=== PATIENT | female | born 1990 | race Two or more races ===

== ENCOUNTER 2022-12-29 23:11 | Emergency (ER) | payer OTHER, SELFPAY ==
--- NOTE | ~2022-12-29 | US_ITS ---
EXAMINATION: US OB <= 14 weeks fetus DATE: 12/30/2022 02:42 INDICATION: Pelvic pain and bleeding during first trimester TECHNIQUE: Real-time pelvic transabdominal ultrasound was performed. COMPARISON: None. FINDINGS: The uterus measures 12.5 x 6.3 x 8.4 cm. There is an intrauterine gestational sac. A yolk s ac is identified. heart motion is identified measuring 174 beats per minute (bpm) by M-mode Dop pler. The crown rump length measures 3.4 cm, which correlates with an estimated gestational age of 10 weeks and 2 day(s) (+/-) 6 day(s). The ovaries are not visualized however no adnexal abnormality is seen. There is no free fluid in the pelvis. IMPRESSION: 1. Live intrauterine with an estimated gestational age of 10 weeks and 2 day(s) (+/-) 6 day (s) and an estimated delivery date of 07/26/2023. Reviewed, dictated and finalized at location [facility]. LE CLEANER IMPRESSION: 1. Live intrauterine with an estimated gestational age of 10 weeks an d 2 day(s) (+/-) 6 day(s) and an estimated delivery date of 07/26/2023.
[2022-12-29 23:15] VITALS: BP 105/63; PULSE 104; RESP 20; TEMP 37; O2SAT 98
[2022-12-29 23:54] VITALS: BP 94/58; PULSE 82
[2022-12-29 23:55] VITALS: BP 90/71; BP 96/66; PULSE 88; PULSE 92
[2022-12-30 00:14] LABS: Basophils Percent Auto 0.4 % (0.2-1.2); Eosinophils Absolute Auto 0.1 K/mm3 (0-0.3); Eosinophils Percent Auto 1.6 % (0-4.4); Hematocrit 36.3 % (37.0-47.0); Hemoglobin 12.3 g/dL (12.0-15.0); Immature Granulocyte Absolute 0.05 K/mm3 (0.00-0.031); Immature Granulocyte Percent A 0.6 % (0-0.5); Lymphocytes Percent Auto 24.4 % (18.3-44.2); Mean Corpuscular HGB Conc 33.9 g/dl (32-36); Mean Corpuscular Hemoglobin 29.6 pg (26-34); Mean Corpuscular Volume 87.3 fl (80-100); Mean Platelet Volume 11.3 fl (7.4-10.4); Monocytes Absolute Auto 0.6 K/mm3 (0.1-0.6); Monocytes Percent Auto 6.4 % (2.6-8.5); Neutrophils Percent Auto 66.6 % (45.5-73.1); Platelet Count Result 229 k/mm3 (150-375); Red Blood Count 4.16 M/mm3 (4.2-5.4); Red Cell Distribution Width 12.3 % (11.5-14.5)
[2022-12-30] MEDS: SODIUM CHLORIDE 0.9% IV 1,000 ML 999 ML IV CONT (00:24)
--- NOTE | 2022-12-30 00:57 | ED.FEMALEGU ---
HPI - Female Genitourinary General Chief complaint: Vaginal Bleeding <Angela Ordonez PA-C - Last Filed: 12/30/22 16:59> Stated complaint: vaginal bleeding <Angela Ordonez PA-C - Last Filed: 12/30/22 16:59> Time Seen by Provider: 12/29/22 23:48 <Angela Ordonez PA-C - Last Filed: 12/30/22 16:59> Source: patient and family <Angela Ordonez PA-C - Last Filed: 12/30/22 16:59> Mode of arrival: ambulatory <Angela Ordonez PA-C - Last Filed: 12/30/22 16:59> Limitations: language barrier (stratus wind farm engineer used) <Angela Ordonez PA-C - Last Filed: 12/30/22 16:59> History of Present Illness HPI Narrative: This is a 32 year old female that presents to the ER for bleeding in . Reports she is about 9 weeks by LMP. Reports she started to have some spotting tonight which prompted her to be seen. Reports some pelvic cramping. Denies fever, vomiting, or dysuria. <Angela Ordonez PA-C - Last Filed: 12/30/22 16:59> Related Data Allergies/Adverse reactions: Allergies Allergy/AdvReac Type Severity Reaction Status Date / Time No Known Allergies Allergy Verified 12/29/22 23:35 <Angela Ordonez PA-C - Last Filed: 12/30/22 16:59> Review of Systems Review of Systems: CONSTITUTIONAL: Denies fever GASTROINTESTINAL: Reports pelvic pain. Denies nausea, vomiting GENITOURINARY: Denies dysuria <Angela Ordonez PA-C - Last Filed: 12/30/22 16:59> All systems reviewed & are unremarkable except as noted in HPI and below <Angela Ordonez PA-C - Last Filed: 12/30/22 16:59> [facility] Past Medical History Medical History: Medical History (Updated 12/30/22 @ 02:48 by Angela Ordonez PA-C) No active medical problems <Angela Ordonez PA-C - Last Filed: 12/30/22 16:59> Social History Social History: Social History (Updated 12/30/22 @ 00:59 by Angela Ordonez PA-C) Smoking status: Never smoker <Angela Ordonez PA-C - Last Filed: 12/30/22 16:59> Exam Narrative: GENERAL: Well-appearing, well-nourished, and in no acute distress. HEAD: Normocephalic, atraumatic. EYES: EOMI. CHEST: Clear to auscultation. No respiratory distress. No wheezes rales or rhonchi HEART: Regular rate and rhythm. No murmur heard. Normal peripheral pulses. ABDOMEN: Soft, nontender, nondistended, normal active bowel sounds. EXTREMITIES: Normal range of motion. No edema. SKIN: Warm, dry, no rash. NEURO: No focal deficits. Alert and oriented x3. PSYCH: Normal mood and affect PELVIC: Small amount of brown discharge, cervix closed <Angela Ordonez PA-C - Last Filed: 12/30/22 16:59> Course Course Emergency Course: Patient updated on workup thus far. Resting comfortably <Angela Ordonez PA-C - Last Filed: 12/30/22 16:59> GUTTER INSTALLER/PA Physician Supervision Patient is signed out to me at the end of ML's shift. We discussed patient's presentation and that she is pending the US to be performed. US is performed. Although ovaries are not visualized, ectopic has been ruled out as there is a viable IUP. I did present to the bedside and evaluate the patient personally. She is reassured by the ultrasound discussed with her. She otherwise states she is feeling better and stable for discharge. I did participate in the assessment, plan, and management of the patient. <Elvira Workman MD - Last Filed: 12/30/22 03:53> Vital Signs Vital signs: Vital Signs Temperature 98.6 F 12/29/22 23:15 Pulse Rate 104 H 12/29/22 23:15 Respiratory Rate 20 12/29/22 23:15 Blood Pressure 105/63 12/29/22 23:15 Pulse Oximetry 98 12/29/22 23:15 Oxygen Delivery Room Air 12/29/22 23:15 Temperature 98.6 F 12/29/22 23:15 Pulse Rate 85 12/30/22 03:06 Respiratory Rate 14 12/30/22 03:06 Blood Pressure 102/70 12/30/22 03:06 Pulse Oximetry 98 12/30/22 03:06 Oxygen Delivery Room Air 12/29/22 23:15 <Angela Ordonez PA-C - Last Filed: 12/30/22 16
[2022-12-30 02:57] VITALS: BP 98/71; PULSE 85; RESP 14; O2SAT 98
[2022-12-30 03:06] VITALS: BP 102/70; PULSE 85; RESP 14; O2SAT 98
== END 2022-12-30 03:57 | disposition home or self-care (01) ==
PROVIDERS: Physician Assistant; Emergency Provider Student in an Organized Health Care Education/Training Program
DX: O20.0 Threatened abortion (principal); Z3A.10 10 weeks gestation of pregnancy
CPT/HCPCS: 36415; 76801; 84702; 85025; 85461; 86850; 86900; 86901; 96360; 99284; J7030

== ENCOUNTER 2023-04-14 12:26 | Outpatient (CLI) | payer MEDICAID, SELFPAY ==
--- NOTE | ~2023-04-14 | US_ITS ---
EXAMINATION: US OB /maternal detail DATE: 04/14/2023 INDICATION: anatomic survey. TECHNIQUE: Real-time ultrasound of the pelvis was performed. COMPARISON: Ultrasound 12/30/2022 FINDINGS: There is a single living fetus in breech presentation. The placenta is posterior. heart rate i s 153 beats per minute (bpm). The amniotic fluid volume is subjectively normal. The following biometric data were obtained: Biparietal diameter (BPD): 6.3 cm; head circumference (HC): 23.7 cm; abdominal circumference (AC): 21 .3 cm; femur length (FL): 4.4 cm. These measurements are discordant with low FL/BPD ratio. Estimated weight is 797 g +/- 120 g, which correlates with the 41st percentile when 07/26/23 is used as estimated date of delivery. As single measurements, these parameters are each equal to the following estimated gestational ages: BPD: 25 weeks 3 days. HC: 25 weeks 5 days. AC: 25 weeks 6 days. FL: 24 weeks 4 days. estimated gestational age based solely on measurements from this exam is 25 weeks 3 days +/- 1 weeks 5 days. The cerebral ventricles, cerebellum, cisterna magna, and visualized portions of the spine are normal. The heart is normal. The diaphragm, stomach, kidneys, and bladder are normal. There are two umbilica l arteries to yield a 3-vessel cord. The cord insertion is normal. The cervical length is 5.9 cm on transvaginal images, which is normal. IMPRESSION: 1. Single living fetus in breech presentation. 2. Estimated weight is 797 g +/- 120 g, which correlates with the 41st percentile when 07/26/23 is used as estimated date of delivery. This date was set by ultrasound on 12/30/2022. 3. Discordant biometrics with low FL/BPD. 4. Normal anatomic survey. Reviewed, dictated and finalized at location [facility]. IDE EVENT SALES SPECIALIST IMPRESSION: 1. Single living fetus in breech presentation. 2. Estimated weight is 797 g +/- 120 g, which correlates with the 41st p ercentile when 07/26/23 is used as estimated date of delivery. This date was set by ultrasound on 12/30/2022. 3. Discordant biometrics with low FL/BPD. 4. Normal anatomic survey.
== END 2023-04-14 12:27 | disposition home or self-care (01) ==
LOC: ANHIMG 12:27
PROVIDERS: PCP Obstetrics & Gynecology Gynecology; Visit Provider Advanced Practice Midwife
DX: Z36.9 Encounter for antenatal screening, unspecified (principal)
CPT/HCPCS: 76805; 76830

== ENCOUNTER 2023-07-18 06:08 | Inpatient (IN) | payer OTHER, SELFPAY ==
[2023-07-18] VITALS (161 sets, daily range): BP systolic 57–127; BP diastolic 25–84; PULSE 66–115; RESP 16; TEMP 36.4–37.1; O2SAT 96–100; BMI 28.5
--- NOTE | 2023-07-18 06:08 | LDADM ---
This patient, Paolo Gonsales, was admitted to Labor/Delivery/Recovery 104 on 07/18/23 at 06:08. Plans for labor, pain management and were discussed with patient. Patient/family oriented to hospital policies and general routines including ID bracelet, bed and alarms, visiting hours, pain management, procedures, bathroom and other care routines, personal items, smoking policy, room service/diet and guest tray routines, security routines, and visiting hours. Patient/Family are encouraged to report perceived risks to care and to ask questions if they do not understand what they are told or what they should do. See OBIX for further documentation.
[2023-07-18 06:53] LABS: Basophils Percent Auto 0.4 % (0.2-1.2); Eosinophils Absolute Auto 0.1 K/mm3 (0-0.3); Hematocrit 38.8 % (37.0-47.0); Hemoglobin 13.3 g/dL (12.0-15.0); Immature Granulocyte Absolute 0.16 K/mm3 (0.00-0.031); Immature Granulocyte Percent A 1.4 % (0-0.5); Lymphocytes Absolute Auto 1.65 K/mm3 (0.9-3.2); Lymphocytes Percent Auto 14.6 % (18.3-44.2); Mean Corpuscular HGB Conc 34.3 g/dl (32-36); Mean Corpuscular Hemoglobin 30.9 pg (26-34); Mean Corpuscular Volume 90.2 fl (80-100); Mean Platelet Volume 10.9 fl (7.4-10.4); Monocytes Absolute Auto 0.7 K/mm3 (0.1-0.6); Monocytes Percent Auto 6.5 % (2.6-8.5); Neutrophils Absolute Auto 8.6 K/mm3 (1.3-6.7); Neutrophils Percent Auto 76.1 % (45.5-73.1); Platelet Count Result 170 k/mm3 (150-375); Red Cell Distribution Width 13.1 % (11.5-14.5); White Blood Count 11.3 K/mm3 (4.5-10.0)
[2023-07-18] MEDS: LACTATED RINGERS 1,000 ML 125 ML IV CONT ×3 (06:59→13:05)
[2023-07-18] MEDS: OXYTOCIN 30 UNITS/NS 500 ML 30 UNITS/500 ML BAG IV CONT (06:59)
--- NOTE | 2023-07-18 07:31 | WPDOBADMIT ---
Obstetrics - Admit Note Admission Note: record reviewed. No pertinent additions to the history and/or any subsequent changes in the physical findings that are not consistent with the expected course of the were found. Additions to the history and/or subsequent changes in the physical findings follow. None.
--- NOTE | 2023-07-18 07:32 | PM.OBPNLAB ---
Pain Control Date/time seen: 07/18/23 07:30 Pain control: tolerating well Comments: feeling occasional cramping Pelvic Exam Dilation (cm): 1 Effacement (%): 50 station: -3 Amniotic membrane status: Intact Comments: posterior cervix, soft. Contractions Monitor mode: External Contraction pattern: Irregular Contraction intensity: Mild Status status: Category l Assessment and Plan Assessment: induction ongoing Comments: Defer discussing ROM attempt at this time due to very posterior cervix and 1cm. Continue pitocin as needed to achieve adequate contraction pattern. Consider ROM attempt later if indicated.
[2023-07-18 09:35] LABS: HIV 1/2 Ab P24 Ag Result Negative (Negative)
--- NOTE | 2023-07-18 12:08 | WPDANESEPP ---
Anes - Eval Pre Procedure Procedure: Labor Epidural Date/Time: 07/18/23 12:08 Surgeon: Marsha Preop Diagnosis: Labor pain Pre Op Diagnosis: Induction of Labor Patient Data Age: 32 Gender: F Height: 1.6 m Weight: 73 kg Last Vital Signs Temp 37.1 C 07/18/23 10:28 Pulse 91 07/18/23 12:00 BP 109/69 07/18/23 12:00 O2 Del Method Room Air 07/18/23 06:33 Allergies Allergy/AdvReac Type Severity Reaction Status Date / Time No Known Allergies Allergy Verified 12/29/22 23:35 Home Medications Medication Instructions Recorded Confirmed Type vit no.95-ferrous 1 tablet PO DAILY 07/18/23 07/18/23 History fumarate 28 mg-folic acid 800 mcg tablet () Laboratory Tests 07/18/23 06:38 WBC 11.3 H K/mm3 (4.5-10.0) RBC 4.30 M/mm3 (4.2-5.4) Hgb 13.3 g/dL (12.0-15.0) Hct 38.8 % (37.0-47.0) MCV 90.2 fl (80-100) MCH 30.9 pg (26-34) MCHC 34.3 g/dl (32-36) RDW 13.1 % (11.5-14.5) Plt Count 170 k/mm3 (150-375) MPV 10.9 H fl (7.4-10.4) Immature Gran % (Auto) 1.4 H % (0-0.5) Neut % (Auto) 76.1 H % (45.5-73.1) Lymph % (Auto) 14.6 L % (18.3-44.2) [place] % (Auto) 6.5 % (2.6-8.5) Eos % (Auto) 1.0 % (0-4.4) Baso % (Auto) 0.4 % (0.2-1.2) Lymph # (Auto) 1.65 K/mm3 (0.9-3.2) [place] # (Auto) 0.7 H K/mm3 (0.1-0.6) Eos # (Auto) 0.1 K/mm3 (0-0.3) Baso # (Auto) 0.0 K/mm3 (0.0-0.1) Abs Immat Gran (auto) 0.16 H K/mm3 (0.00-0.031) Absolute Neuts (auto) 8.6 H K/mm3 (1.3-6.7) Absolute Nucleated RBC 0.000 K/mm3 (0.0-0.012) Nucleated RBC % 0.0 % (0.0-0.2) RPR Pending HIV 1&2 Ab/P24 Ag 4thGn Negative (Negative) Blood Type O Positive Antibody Screen Negative : gestational age (EDD07/23/23) Patient hx anesthesia problems: none Family hx anesthesia problems: none Results Review: All pre-operative results and documents have been reviewed as part of the pre-operative evaluation. REPLACED BY [facility] Past Medical History Medical History No active medical problems Social History Social History Smoking status: Never smoker Second hand tobacco smoke exposure: No Substance use: never Do You Feel Safe in your Home?: No Lack of Transportation: No Lack of Food: Never True Current Housing: I Have Housing Concerned About Future Housing: No Difficulty Paying Gas/Electric Bills: No Difficulty Paying for Meds: No Currently Unemployed: No Education: High School Diploma/GED Difficulty w/ Childcare or Family Care: No Spiritual care concerns: No Exam Day of Procedure 07/18/23 12:08 Heart: regular rate and rhythm Lungs: normal air movement Airway: Mallampati scale class II Neurological: alert and oriented
--- NOTE | 2023-07-18 12:42 | PM.OBPNLAB ---
Pain Control Date/time seen: 07/18/23 12:40 Pain control: epidural Pelvic Exam Dilation (cm): 3 Effacement (%): 50 station: -3 Amniotic membrane status: Intact Comments: head well applied to cervix. Contractions Monitor mode: External Contraction pattern: Irregular Contraction intensity: Mild Status status: Category ll Assessment and Plan Pitocin rate (mU/min): 10 Assessment: induction ongoing Comments: CNM to bedside. Discussed plan of care an option for amniotomy. Discussed risks, benefits, and expectations of breaking water. Patient is agreeable. SVE with head -3 station. Poon catheter inserted and allowed to drain prior to ROM. Amniotomy performed and there was a moderate return of clear amniotic fluid. Patient tolerated procedure well. station -2.
[2023-07-18 13:18] LABS: Rapid Plasma Reagin Non-Reactive (NonReactive)
[2023-07-18] MEDS: OXYTOCIN 30 UNITS/NS 500 ML 30 UNITS/500 ML BAG 125 UNITS IV CONT (18:16)
--- NOTE | 2023-07-18 19:02 | P.PCNOB_ITS ---
OB - Vaginal Delivery Note Procedure Delivery date: 07/18/23 Induction method: Per Pitocin Protocol Delivery augmentation: Rupture of Membranes Delivery monitor: External FHT and External Uterine Route of delivery: Episiotomy description: None Laceration Description: Perineal - 1st Degree Delivery repair: vicryl Specimen: No Quantitative Blood Loss (ml): 55 Anesthesia type: Epidural Disposition: Floor Complications: No immediate complications Narrative: Paolo Arrived for induction of labor at term. She received Pitocin and made cervical change to complete dilation. She pushed well with her contractions and quickly brought the head to complete crown after which there was good restitution an easy delivery of the anterior and posterior shoulders. After the remainder of the was delivered, he was placed on the maternal abdomen and dried and stimulated by the nursery staff. After 1 minutes of life, the cord was doubly clamped and cut. Cord blood, cord gases, and cord segment were obtained. The placenta delivered spontaneously. A first-degree vaginal laceration was repaired in the usual fashion. There was excellent uterine tone and hemostasis. All delivery counts correct. Mother and baby skin to skin in the delivery room. [place] Baby Date of : 07/18/23 Time of : 17:42 Weeks of gestation at delivery: 39 Infant gender: Male Weight (pounds): 7 Weight (ounces): 8 presentation: vertex position: Right Occiput Anterior Placenta delivery description: Spontaneous and Normal Configuration Cord Vessel Description: 3 Vessels and Delayed Cord Clamping score one minute: 9 score five minutes: 9
--- NOTE | 2023-07-18 19:16 | PM.OBPNVD ---
OB - PN: Subj Subjective Date/time seen: 07/18/23 1820 Interval history: After delivery, a rash was noted to pt abdomen. Slightly raised with some ring like appearing areas. Dark pink in color, no weeping/drainage. OB - PN: Obj Data Labs 07/18/23 06:38 Labs: Laboratory Results - last 24 hr 07/18/23 06:38 WBC 11.3 H RBC 4.30 Hgb 13.3 Hct 38.8 MCV 90.2 MCH 30.9 MCHC 34.3 RDW 13.1 Plt Count 170 MPV 10.9 H Immature Gran % (Auto) 1.4 H Neut % (Auto) 76.1 H Lymph % (Auto) 14.[address] [place] % (Auto) 6.5 Eos % (Auto) 1.0 Baso % (Auto) 0.4 Lymph # (Auto) 1.65 [place] # (Auto) 0.7 H Eos # (Auto) 0.1 Baso # (Auto) 0.0 Abs Immat Gran (auto) 0.16 H Absolute Neuts (auto) 8.6 H Absolute Nucleated RBC 0.000 Nucleated RBC % 0.0 RPR Non-reactive HIV 1&2 Ab/P24 Ag 4thGn Negative Blood Type O Positive Antibody Screen Negative OB - PN A/P Time Spent With Patient Time: Total time spent is greater than 50% in coordination of care (as documented) at patient's floor/unit and/or counseling patient:
[2023-07-18] MEDS: BENZOCAINE 20% AER SPR (*SP) 56 GM CAN 1 SPRAY TOPICAL (20:37)
[2023-07-18] MEDS: WITCH HAZEL 40 PADS 1 PAD TOPICAL (20:37)
[2023-07-18] MEDS: MICONAZOLE NITRATE 2% CREAM 30 GM TUBE 1 APPLIC TOPICAL (22:00)
[2023-07-18] MEDS: IBUPROFEN 600 MG TABLET PO (22:05)
[2023-07-18] MEDS: ACETAMINOPHEN 325 MG TABLET 650 MG PO (22:06)
--- NOTE | 2023-07-19 00:20 | OBPPTRN ---
07/18/2023 at 2144 Patient transferred to post room #280 in wheelchair. With the father of baby's sister serving as occupational health and safety officer, Paolo and her significant other were oriented to unit, room, information board, rooming in, admission packet and security measures. Yemi, her significant other and [id number] verbalizes understanding.
[2023-07-19 05:00] VITALS: BP 93/55; PULSE 95; RESP 16; TEMP 36.2; O2SAT 99
[2023-07-19 05:20] LABS: Hematocrit 37.8 % (37.0-47.0); Hemoglobin 12.8 g/dL (12.0-15.0)
[2023-07-19 07:40] VITALS: BP 91/59; PULSE 91; RESP 18; TEMP 36.7; O2SAT 98
[2023-07-19] MEDS: MULTIVIT/MIN/PREN/FOL AC/IRON TABLET 1 TAB PO (08:01)
[2023-07-19] MEDS: IBUPROFEN 600 MG TABLET PO ×2 (08:01→19:23)
--- NOTE | 2023-07-19 08:01 | PM.OBPNVD ---
OB - PN: Subj Subjective Date/time seen: 07/19/23 0750 Interval history: Doing well. Urinating without difficulty. Denies passing any large clots. Denies dizziness with ambulating. Tolerating po food and fluids. Bonding with infant. Patient comments: other (abdominal cramping) baby status: doing well [place] feeding status: breast and bottle feeding OB - PN: Obj Data Labs 07/19/23 04:51 Labs: Laboratory Results - last 24 hr 07/18/23 07/19/23 06:38 04:51 Hgb 12.8 Hct 37.8 RPR Non-reactive HIV 1&2 Ab/P24 Ag 4thGn Negative OB - PN A/P Assessment and Plan (1) (normal spontaneous vaginal delivery): Code(s): O80 - Encounter for full-term uncomplicated delivery Status: Acute Plan day: 1 Plan: routine care Time Spent With Patient Time: Total time spent is greater than 50% in coordination of care (as documented) at patient's floor/unit and/or counseling patient: Review of Systems Review of Systems: All systems reviewed & are unremarkable except as noted in HPI and below Exam Narrative: Alert and oriented. Mood is pleasant and cooperative. Perineum with minimal edema. Fundus firm and below umbilicus. Const: General: cooperative, healthy appearing, no acute distress and alert Orientation/consciousness: patient oriented x3 Limitations: no limitations Resp: Effort & Inspection: normal respiratory effort and able to speak in complete sentences Auscultation: clear to auscultation bilaterally Cardio: Rate: regular rate GI: Inspection: normal to inspection Auscultation: normal bowel sounds : General: Yes bladder normal to palpation External Female Exam: other (lochia WNL) Bimanual exam- vagina & uterus: bladder normal to palpation Other: Fundus firm and below U Skin: General skin exam: normal color and no rashes or lesions noted Neuro: General: patient oriented x3 and moves all extremities Cognition (Neuro): normal cognition Extrem: General: normal to inspection and no calf tenderness Psych: Appearance: grossly normal Mental Status: mental status grossly normal Affect: normal affect Thought process: Normal thought process present
[2023-07-19] MEDS: MICONAZOLE NITRATE 2% CREAM 30 GM TUBE 1 APPLIC TOPICAL ×2 (08:04→20:00)
--- NOTE | 2023-07-19 09:56 | PC.NURSE ---
[id number] Introductions were made. Mother speaks little Icelandic but together the parents shared that she will only bottle feed right now as that is what she did with her other children. Infant has been bottle fed since . Parents declined services. Reported to SHAHID.
--- NOTE | 2023-07-19 10:56 | WPDANLDPN2 ---
Anes-Prog Note L&D Date/Time: 07/19/23 10:56 Neuro status: Neuro function grossly intact. Cardiovascular status: normal Respiratory status: normal Airway patency: baseline Mental status: baseline Post-Op hydration status: normal Vital Signs: Last Vital Signs Temp 36.7 C 07/19/23 07:40 Pulse 91 07/19/23 07:40 Resp 18 07/19/23 07:40 BP 91/59 L 07/19/23 07:40 Pulse Ox 98 07/19/23 07:40 O2 Del Method Room Air 07/18/23 06:33 Pain score (VAS): 0 I/O: Intake & Output 07/18/23 07/19/23 07/19/23 23:59 07:59 15:59 Intake Total 1500 240 Balance 1500 240 Post-procedural complaints: none Patient feedback: Patient satisfied with anesthetic care.
[2023-07-19] MEDS: ACETAMINOPHEN 325 MG TABLET 650 MG PO ×2 (11:20→19:23)
[2023-07-19 19:00] VITALS: BP 98/62; PULSE 86; RESP 18; TEMP 37.1; O2SAT 99
[2023-07-20 07:35] VITALS: BP 99/63; PULSE 86; RESP 16; TEMP 37.2; O2SAT 98
[2023-07-20] MEDS: IBUPROFEN 600 MG TABLET PO (08:14)
[2023-07-20] MEDS: ACETAMINOPHEN 325 MG TABLET 650 MG PO (08:15)
[2023-07-20] MEDS: MULTIVIT/MIN/PREN/FOL AC/IRON TABLET 1 TAB PO (08:15)
[2023-07-20] MEDS: DOCUSATE SODIUM 100 MG CAPSULE PO (08:15)
--- NOTE | 2023-07-20 09:02 | PC.NURSE ---
0830 - Report received that parents are practicing the same as with the other children. They are bottle feeding until she believes her milk is in . 07/19/23 Mother declined pumping and putting infant to breast after sharing information regarding protecting her milk supply. Mother declines pumping and until she goes home. Declines assistance at this time.
--- NOTE | 2023-07-20 12:10 | PM.OBPNVD ---
OB - PN: Subj Subjective Date/time seen: 07/20/23 0750 Interval history: Doing well. Urinating without difficulty. Denies passing any large clots. Denies dizziness with ambulating. Tolerating po food and fluids. Bonding with infant. Pain well controlled with Ibuprofen Patient comments: no complaints and pain well controlled [place] baby status: doing well feeding status: breast and bottle feeding OB - PN: Obj Data Labs 07/19/23 04:51 OB - PN A/P Assessment and Plan (1) (normal spontaneous vaginal delivery): Code(s): O80 - Encounter for full-term uncomplicated delivery Status: Acute Plan day: 2 Plan: discharge home Time Spent With Patient Time: Total time spent is greater than 50% in coordination of care (as documented) at patient's floor/unit and/or counseling patient: Review of Systems Review of Systems: All systems reviewed & are unremarkable except as noted in HPI and below Exam Narrative: Alert and oriented. Mood is pleasant and cooperative. Perineum with minimal edema. Fundus firm and below umbilicus. Const: General: cooperative, healthy appearing, no acute distress and alert Orientation/consciousness: patient oriented x3 Limitations: no limitations Resp: Effort & Inspection: normal respiratory effort and able to speak in complete sentences Auscultation: clear to auscultation bilaterally Cardio: Rate: regular rate GI: Inspection: normal to inspection Auscultation: normal bowel sounds : General: Yes bladder normal to palpation External Female Exam: other (lochia WNL) Bimanual exam- vagina & uterus: bladder normal to palpation Other: Fundus firm and below U Skin: General skin exam: normal color and no rashes or lesions noted Neuro: General: patient oriented x3 and moves all extremities Cognition (Neuro): normal cognition Extrem: General: normal to inspection and no calf tenderness Psych: Appearance: grossly normal Mental Status: mental status grossly normal Affect: normal affect Thought process: Normal thought process present
--- NOTE | 2023-07-20 12:12 | PM.OBDSVD ---
DS: Admitting Diagnosis Discharge Date 07/20/23 Admitting Diagnosis 32 y.o. at 39 weeks gestation IOL DS: Discharge Diagnosis Discharge Diagnosis (1) (normal spontaneous vaginal delivery): Code(s): O80 - Encounter for full-term uncomplicated delivery Status: Acute OB - DS: Summary Hospital Course Hospital Course: Uncomplicated OB Procedures : Ultrasound OB Procedures Intrapartum: Spontaneous Vag Delivery OB Procedures: : None Peripartum Data Delivery Method: Natural Vaginal Laceration Description: Perineal - 1st Degree Episiotomy description: None complications: none Status at Discharge Functional status at discharge: independent ambulation Overall status at discharge: patient is progressing back to baseline Time Spent with Patient Time attestation: Total time spent providing and/or coordinating discharge services: Exam Narrative: Alert and oriented. Mood is pleasant and cooperative. Perineum with minimal edema. Fundus firm and below umbilicus. Const: General: cooperative, healthy appearing, no acute distress and alert Orientation/consciousness: patient oriented x3 Limitations: no limitations Resp: Effort & Inspection: normal respiratory effort and able to speak in complete sentences Auscultation: clear to auscultation bilaterally Cardio: Rate: regular rate GI: Inspection: normal to inspection Auscultation: normal bowel sounds : General: Yes bladder normal to palpation External Female Exam: other (lochia WNL) Bimanual exam- vagina & uterus: bladder normal to palpation Other: Fundus firm and below U Skin: General skin exam: normal color and no rashes or lesions noted Neuro: General: patient oriented x3 and moves all extremities Cognition (Neuro): normal cognition Extrem: General: normal to inspection and no calf tenderness Psych: Appearance: grossly normal Mental Status: mental status grossly normal Affect: normal affect Thought process: Normal thought process present Discharge Plan Discharge Attending physician on discharge: Megan Larson Discharging Clinician: Crystal Larsen Anticipated Discharge Date/Time: 07/20/23 12:13 Patient Disposition: Home, Self-Care Activity: may shower and pelvic rest Diet: as tolerated Wound Care Instructions: follow printed instructions Discharge Instructions: Continue taking your vitamin and any other supplements as previously directed (Examples: Iron, Vitamin D). You may take Tylenol 1000mg over the counter every 6 hours as needed for pain. Do not exceed 4000mg of Tylenol daily. You may continue using tucks pads and dermoplast spray if needed for a few more days. Depression Notify provider for signs or symptoms. These may include- Feelings: Feeling anxious, angry, hopeless, guilt, or loss of interest/pleasure in activities you normally enjoy. Mood swings or panic attacks. General: Extreme fatigue, loss of your appetite, feeling restless. Crying excessively, irritability, insomnia Psychological: Lack of concentration, depression or fear, unwanted thoughts Weight: Significant gain or loss Safety: Thoughts of harming yourself or your baby. Patient Instructions: Antibiotic Form Stand Alone Forms: General Discharge Information Follow-up/Referrals: Crystal Larsen, RIANA [Certified Nurse [employer]] - (6 weeks ) Discharge Medications: New docusate sodium 100 mg Capsule 100 mg PO BID PRN (Reason: Constipation) 30 Days Qty: 60 0RF ibuprofen 600 mg Tablet 600 mg PO Q6H PRN (Reason: Cramping) 14 Days Qty: 30 0RF Continued PNV [id number]-ferrous fumarate-FA [] 28 mg iron- 800 mcg Tablet 1 tablet PO DAILY Date of admission: 07/18/23 06:08 Primary Care Provider: Megan Larson Admitting Provider: Megan Larson Attending physician on admi
[2023-07-21 10:36] VITALS: BP 109/58; PULSE 89; RESP 18; TEMP 36.7; O2SAT 97
== END 2023-07-20 12:48 | disposition home or self-care (01) | DRG 560 ==
LOC: ANHLDR 06:12 → ANHOB2 23:09
PROVIDERS: Advanced Practice Midwife; Admitting Provider Obstetrics & Gynecology Gynecology; PCP Obstetrics & Gynecology Gynecology; Visit Provider Obstetrics & Gynecology Gynecology
DX: O70.0 First degree perineal laceration during delivery (principal); Z37.0 Single live birth; Z3A.39 39 weeks gestation of pregnancy
CPT/HCPCS: 36415; 85014; 85018; 85025; 86592; 86703; 86850; 86900; 86901; A9270; G0432; J2590; J2795; J7120